=== PATIENT | female | born 1930 | race Caucasian/White ===

== ENCOUNTER 2019-08-28 13:23 | Inpatient (IN) ==
[2019-08-28] MEDS ORDERED: SODIUM CHLORIDE 0.9% 500 ML IV SCH (14:15)
[2019-08-28 14:40] LABS: Basophils # (auto) 0.01 K/uL (0-0.2); Basophils % (auto) 0.1 %; Hematocrit (blood only) 45.7 % (37-47); Hemoglobin 14.4 g/dL (12.0-16.0); Immature Granulocytes # (auto) 0.09 K/uL (0.00-0.02); Immature Granulocytes % (auto) 0.5 %; Lymphocytes # (auto) 0.84 K/uL (1.2-3.4); Lymphocytes % (auto) 4.6 %; Mean Corpuscular Hemoglobin 30.9 pg (25-34); Mean Corpuscular Hgb Conc 31.5 g/dL (32-36); Mean Corpuscular Volume 98.1 fL (80-100); Mean Platelet Volume 11.8 fL (7.4-10.4); Monocytes # (auto) 1.82 K/uL (0.11-0.59); Neutrophils # (auto) 15.37 K/uL (1.4-6.5); Neutrophils % (auto) 84.8 %; Platelet Count 174 K/uL (130-400); RDW Coefficient of Variation 17.1 % (11.5-14.5); RDW Standard Deviation 59.9 fL (36.4-46.3); Red Blood Count 4.66 M/uL (4.2-5.4); White Blood Count 18.13 K/uL (4.8-10.8)
[2019-08-28] MEDS ORDERED: DEXTROSE 50% 50 ML SYRINGE IV ONE ×2 (14:43→14:50)
[2019-08-28 14:53] LABS: iSTAT Blood Urea Nitrogen 37 mg/dl (7-18); iSTAT Carbon Dioxide 16 mEq/l (24-31); iSTAT Chloride 106 mEq/L (101-112); iSTAT Creatinine 1.5 mg/dl (0.6-1.3); iSTAT Glucose < 20 mg/dl (70-99); iSTAT Hematocrit 44 % (37-47); iSTAT Ionized Calcium 1.03 mmol/l (1.12-1.32); iSTAT Potassium 5.1 mEq/L (3.3-5.0); iSTAT Sodium 139 mEq/L (135-144)
[2019-08-28 15:01] LABS: Partial Thromboplastin Ratio 1.4; Partial Thromboplastin Time 36.6 Seconds (21.0-31.0); Prothrombin Time > 90.0 Seconds (9.0-12.0)
--- NOTE | 2019-08-28 15:11 | XRay Report ---
XR chest 1V portable CLINICAL HISTORY: hypoxia COMPARISON STUDY: 08/25/2019 FINDINGS: The heart remains enlarged. There is a left subclavian dual-chamber central venous pacemake r. There is stable elevation/eventration left hemidiaphragm. There is no failure. There is no focal p ulmonary consolidation.[Surgical clips are visualized within the base of the right neck/right medial lung apex. IMPRESSION: Cardiomegaly. No acute findings. ACT 112: Negative or not required by law. Electronically signed by: Subhash Swain M.D. 08/28/2019 3:10 PM
[2019-08-28 15:13] LABS: INR > 10.4 (0.9-1.1)
[2019-08-28 15:18] LABS: Alanine Aminotransferase 513 U/L (12-78); Albumin Globulin Ratio 1.3 (0.9-2); Albumin Level 3.6 gm/dl (3.4-5.0); Alkaline Phosphatase 149 U/L (45-117); Aspartate Aminotransferase 853 U/L (15-37); BUN Creatinine Ratio 20.9 (10-20); Blood Urea Nitrogen 37 mg/dl (7-18); Calcium 9.5 mg/dl (8.5-10.1); Carbon Dioxide 16 mmol/L (21-32); Chloride 105 mmol/L (98-107); Globulin 2.7 gm/dl (2.5-4.0); Glucose 4 mg/dl (70-99); Potassium 5.1 mmol/L (3.5-5.1); Sodium 141 mmol/L (136-145); Total Protein 6.3 gm/dl (6.4-8.2); Troponin I 0.075 ng/ml (0-0.045)
[2019-08-28] MEDS ORDERED: PIPERACILLIN/TAZOBACTAM 4.5 GM/120 ML BAG IV ONE ×2 (15:33→17:05)
[2019-08-28] MEDS ORDERED: PIPERACILL/TAZOBAC CONSULT ACTIVE PRN ×3 (15:33→18:18)
[2019-08-28] MEDS ORDERED: PHYTONADIONE 10 MG in SODIUM CHLORIDE 0.9% 50 ML IV ONE (15:33)
--- NOTE | 2019-08-28 15:52 | CT Scan Report ---
CT head/brain wo con CLINICAL HISTORY: Head trauma. Patient on Coumadin. COMPARISON STUDY: 08/25/2019 TECHNIQUE: Axial CT of the brain is performed from the vertex to the skull base. IV contrast was not administered for this examination. A dose lowering technique was utilized adhering to the principles of ALARA. CT DOSE: 537.48 mGy.cm FINDINGS: No intra or extra-axial mass lesions are visualized. There is no CT evidence of acute cortical infarc tion. There is no evidence of midline shift. There is no acute hemorrhage. No calvarial fractures ar e visualized. There are patchy white matter hypodensities likely on a small vessel basis. There are old right cereb ellar lacunar infarcts. There is no evidence of pathologic ventricular dilatation. There is no evidence of acute sinusitis IMPRESSION: No acute intracranial findings ACT 112: Negative or not required by law. Electronically signed by: Subhash Swain M.D. 08/28/2019 3:51 PM
--- NOTE | 2019-08-28 16:00 | CT Scan Report ---
CT SCAN OF THE ABDOMEN AND PELVIS WITHOUT CONTRAST CLINICAL HISTORY: rectal bleeding, abdominal pain COMPARISON STUDY: No previous studies for comparison. TECHNIQUE: CT scan of the abdomen and pelvis was performed from the lung bases to the proximal femurs . Images are reviewed in the axial, sagittal, and coronal planes. IV contrast was not administered fo r this examination. A dose lowering technique was utilized adhering to the principles of ALARA. CT DOSE: 358.84 mGy.cm FINDINGS: Lower chest: There is a small left pleural effusion and trace right pleural effusion. Liver: The unenhanced liver is normal in size, contour, and attenuation. There is no intrahepatic lauri iary ductal dilatation. Gallbladder: Surgically absent Spleen: Normal in size and attenuation. Pancreas: Unremarkable. Adrenal glands: Unremarkable. Kidneys: The unenhanced kidneys are normal in size without hydronephrosis. There is no contour deform ing renal mass lesion. No renal calculi are identified. Bowel: There are no transition zones to indicate bowel obstruction. There is suspected mild bowel wal l thickening involving the right colon, and rectum. There is no acute diverticulitis. There is no cary dence of acute appendicitis. Peritoneum: No free air is visualized. There is a small amount of perihepatic fluid. There is a small amount of fluid within a right inguinal hernia. Vasculature: The abdominal aorta is normal in course and caliber. Adenopathy: None. Pelvic viscera: The bladder, and pelvic viscera are unremarkable. Skeletal structures: There is an old left ischio pubic ring fracture. There is an old sacral fracture . There is generalized body wall edema consistent with anasarca. IMPRESSION: 1. Difficult study to interpret secondary to artifact from the patient's inability to extend her arms over her head. In addition the study is limited due to the lack of intravenous and oral contrast and the generalized anasarca present. 2. Small left pleural effusion and trace right pleural effusion 3. No evidence of bowel obstruction. No evidence of free air 4. No evidence of acute diverticulitis. No evidence of acute appendicitis. 5. Possible bowel wall thickening involving the rectum and right colon. Clinical correlation regards to a colitis is recommended 6. Minimal ascites 7. Generalized anasarca 8. No renal, ureteral, or bladder calculi identified ACT 112: Negative or not required by law. Electronically signed by: Subhash Swain M.D. 08/28/2019 3:58 PM
[2019-08-28] MEDS ORDERED: PANTOprazole 80 MG in DEXTROSE 5% 100 ML IV ONE (16:15)
[2019-08-28] MEDS: PANTOprazole 40 MG in DEXTROSE 5% 100 ML IV SCH ×2 (16:50→22:01)
[2019-08-28] MEDS ORDERED: SODIUM CHLORIDE 0.9% 1000ML 500 ML IV ONE (17:00)
--- NOTE | 2019-08-28 17:44 | History & Physical Report ---
Date of Service August 28, 2019 Assessment & Plan (1) Supratherapeutic INR: Patient chronically anticoagulated for atrial fibrillation with RVR Patient presents with GI bleed with scant amount of blood in underwear Unclear from shelter if patient has had ongoing hematochezia and melena INR is supratherapeutic greater than 10.4 Vitamin K 10 mg IV administered We will follow serial INR Hold Coumadin Follow serial CBC to monitor hemoglobin (2) Hypoglycemia: No history of diabetes mellitus or insulin use Lactic acid did return 11.1 We will have to assume that hypoglycemia secondary to sepsis Patient was treated with 2 amps of dextrose [id number] BSG is now 276 We will allow high BSG to drift down without any insulin until acidosis is corrected (3) Sepsis: Lactic acid is 11.[address] scan of the abdomen pelvis with question of colitis Zosyn has been started with 4.5 g administered in the emergency department We will also start daptomycin to cover MRSA Repeat lactic acid at 2000 with reflex repeat levels for lactic acid greater than 2 500 cc bolus of Normosol over 3 hours (175 cc/hr) We will follow serial labs Blood cultures x2 have been collected and are pending UA is ordered * Hold on Vaughan catheter secondary to supratherapeutic INR (4) Elevated troponin: Troponin 0 0.075 * This is probably a slight bump secondary to ischemic demand from sepsis Repeat troponin level at 2000 hrs. and again at 0400 EKG repeat in the morning Echocardiogram ordered for the morning (5) Liver dysfunction: Elevated AST ALT and alkaline phosphatase Repeat LFTs in the morning This may be secondary to sepsis Once patient is stable consider ultrasound of the liver No acute findings on CT abdomen pelvis No prior history of hepatitis or liver disease (6) Atrial fibrillation with tachycardic ventricular rate: Chronically anticoagulated with Coumadin * Supratherapeutic INR on admission Toprol-XL as an outpatient We will see how patient is doing the morning regarding oral meds We will place patient on telemetry We will order IV Lopressor 2.5 mg as needed Echocardiogram in the morning Repeat EKG in the morning (7) CVA (cerebral vascular accident): Secondary to atrial fibrillation with RVR several years ago No acute findings on CT head 08/25/2019 or on today's visit No indication for MRI or further follow-up at this time (8) Tachy-jackie syndrome: Status post pacemaker placement Continue to monitor on telemetry (9) Hypothyroidism: Secondary to partial thyroidectomy Synthroid 75 mcg daily May need to convert to IV if no improvement in patient status (10) DVT prophylaxis: INR supratherapeutic secondary to chronic Coumadin use Coumadin has been held and 10 mg of IV vitamin K has been administered Hold on LEATHA stockings and SCDs at this point Reevaluate in the morning Please refer to Dr. Dodge's addendum and corrections for further recommenda tions. History of Present Illness Chief Complaint: GI bleed Primary Care Provider: [facility] Attending: Dr. Dodge This is an 88-year-old female that currently resides at [facility] in assisted living for the last 3 weeks. She has a past medical history of atrial fibrillation with RVR, chronic anticoagulation, recent fall, tachybradycardia syndrome, status post placement of cardiac pacemaker, CVA, anxiety and depression, hypothyroidism, remote tobacco abuse history (quit smoking 50 years ago). The patient suffered a CVA several years ago secondary to atrial fibrillation with RVR. Since that time she has had increased dementia and recently was moved to assisted living at [facility]. She has been doing well until 4 days ago when she suffered a fall. She presented to the emergency department on 08/25/[address] head and cervical spine CT was negative. The patient has ecchymosis around the left eye with no tenderness to palpation. Today the family was notified that the patient had some blood with her stool and increased confusion. The patient was transported to the emergency department where a CT head was again negative and chest x-ray was negative for acute cardiopulmonary findings. CT abdomen and pelvis revealed artifact from movement and inability to extend arms overhead. Patient was found to have generalized anasarca on the study as well as a small left pleural effusion and a trace right pleural effusion. There was possible bowel wall thickening involving the rectum and right colon. There is minimal ascites. On arrival to the emergency department, patient was found to be hypoxic with an SaO2 in the 70s without good waveform. Patient was transiently placed on BiPAP. ABG was obtained which revealed pH of 7.36, PCO2 of 26.3, PaO2 of 371, HCO3 of 15, with an SaO2 of 100%. Patient was then placed on nasal cannula and nasal trumpet was kept in place. Oral examination of the posterior oropharynx revealed no evidence of stigmata of blood. Pulse oximetry 15 minutes after changing to nasal cannula revealed an SaO2 of 96% using the right third digit. Patient is seen at bedside with her daughter Cindy Davis and son-in-law Maciej. Patient is able to answer yes/no questions and follow simple commands. Patient shows no clinical evidence of acute stroke. She denies any pain to her head, thorax, or abdomen. Palpation around the left eye shows no guarding, flinching, or report of pain from the patient. She is unable to give me her history with where she lives. She is also unable to give me history regarding how she came to be at [facility]. Inasmuch as the patient was not able to provide review of systems, history was obtained by the daughter and son-in-law. Allergies Allergy/AdvReac Type Severity Reaction Status Date / Time adhesive Allergy Unknown RASH - Verified 08/28/19 14:17 ADHESIVE TAPE Home Medications Home Medications Medication Instructions Recorded Confirmed Type furosemide 20 mg PO QAM 08/25/19 08/28/19 History levothyroxine 75 mcg PO QAM 08/25/19 08/28/19 History metoprolol succinate 50 mg PO QAM 08/25/19 08/28/19 History potassium chloride 10 meq PO BID 08/25/19 08/28/19 History sertraline 50 mg PO QAM 08/25/19 08/28/19 History timolol maleate 1 drp OPB QA 08/25/19 08/28/19 History warfarin 9 mg PO DAILY 08/25/19 08/28/19 History warfarin 12 mg PO UD 08/25/19 08/28/19 History Past Med/Surg History Medical History Anxiety and depression (Chronic) Atrial fibrillation with tachycardic ventricular rate (Acute) CVA (cerebral vascular accident) Hypothyroidism (Chronic) Tachy-jackie syndrome TIA (transient ischemic attack) (Resolved) Surgical History History of partial thyroidectomy (Resolved) Hx of cataract surgery (Resolved) "bilat" Family History Other Family history non-contributory Social History (Updated 08/28/19 @ 17:37 by Miky Murillo PA-C) Preferred Language: [place] Islander Communication Ability Comment: unable to assess Beliefs That Will Affect Care: None marital status: / Current Living Situation: Personal Care Facility Current Living Situation Comment: Moved to [facility] assisted living 3 weeks ago 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al status: retired 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 No apparent acute distress. EYES: No icterus, gaze conjugate. Pupils equal round and reactive to light NOSE: No evidence of epistaxis. Nasal trumpet and right naris. Nasal cannula placed and secure. MOUTH: No lesions or candidiasis. No stigmata of blood in the posterior oropharynx. Bridge across the soft palate. Tongue is midline. Mucosa is extr tong dry. NECK: Supple. LUNGS: CTA B/L, no wheezes, rales or rhonchi. Patient takes deep inspiration of breath on command. HEART: Irregular, irregular with a rate in the 1-teens ABDOMEN: Soft, NT, ND, BS Present. No guarding EXTREMITIES: +2 LE edema, pedal pulses intact and equal bilaterally. There is mottling on the bilateral knees. There is venous stasis on the bilateral lower extremities. Feet are warm to touch and equal bilaterally. Radial pulses are intact and equal bilaterally. Hands are warm. NEURO: Awake and alert. Follows simple commands. Pupils equal round and reactive to light. Tongue is midline. Patient sticks tongue out to command. Patient squeezes fingers bilaterally and equally. Patient can wiggle toes bilaterally. Toes are non-equivocal. Results & Data Vital Signs (Past 12 Hours) Vital Signs Temp Pulse Pulse Resp BP Pulse Ox 08/28/19 16:00 114 H 22 140/95 96 08/28/19 15:21 94 08/28/19 14:59 114 H 18 113/88 85 L 08/28/19 14:40 115 H 26 H 08/28/19 14:22 76 L 08/28/19 13:24 35 C L 120 H 18 120/79 Laboratory Results 08/28/19 14:31 08/28/19 14:31 INR > 10.4 (0.9-1.1) H* 08/28/19 14:31 Laboratory Tests 08/28/19 08/28/19 14:31 16:58 Lactate 11.1 H* Troponin I 0.075 H* Laboratory Tests 08/28/19 14:31 Total Bilirubin 4.0 H AST 853 H ALT 513 H Alkaline Phosphatase 149 H Total Protein 6.3 L Albumin 3.6 Arterial blood gas 08/28/2019 at 16: 34 - pH 7.363 PCO2 26.3 [id number] HCO3 15 SaO2 100% Blood gases x2 are pending Diagnostic Findings CT SCAN OF THE ABDOMEN AND PELVIS WITHOUT CONTRAST CLINICAL HISTORY: rectal bleeding, abdominal pain COMPARISON STUDY: No previous studies for comparison. TECHNIQUE: CT scan of the abdomen and pelvis was performed from the lung bases to the proximal femurs. Images are reviewed in the axial, sagittal, and coronal planes. IV contrast was not administered for this examination. A dose lowering technique was utilized adhering to the principles of ALARA. CT DOSE: 358.84 mGy.cm FINDINGS: Lower chest: There is a small left pleural effusion and trace right pleural eff usion. Liver: The unenhanced liver is normal in size, contour, and attenuation. There is no intrahepatic biliary ductal dilatation. Gallbladder: Surgically absent Spleen: Normal in size and attenuation. Pancreas: Unremarkable. Adrenal glands: Unremarkable. Kidneys: The unenhanced kidneys are normal in size without hydronephrosis. There is no contour deforming renal mass lesion. No renal calculi are identified. Bowel: There are no transition zones to indicate bowel obstruction. There is winston spected mild bowel wall thickening involving the right colon, and rectum. There is no acute diverticulitis. There is no evidence of acute appendicitis. Peritoneum: No free air is visualized. There is a small amount of perihepatic fluid. There is a small amount of fluid within a right inguinal hernia. Vasculature: The abdominal aorta is normal in course and caliber. Adenopathy: None. Pelvic viscera: The bladder, and pelvic viscera are unremarkable. Skeletal structures: There is an old left ischio pubic ring fracture. There is an old sacral fracture. There is generalized body wall edema consistent with anasarca. IMPRESSION: 1. Difficult study to interpret secondary to artifact from the patient's inability to extend her arms over her head. In addition the study is limited due to the lack of intravenous and oral contrast and the generalized anasarca present. 2. Small left pleural effusion and trace right pleural effusion 3. No evidence of bowel obstruction. No evidence of free air 4. No evidence of acute diverticulitis. No evidence of acute appendicitis. 5. Possible bowel wall thickening involving the rectum and right colon. Clinical correlation regards to a colitis is recommended 6. Minimal ascites 7. Generalized anasarca 8. No renal, ureteral, or bladder calculi identified ACT 112: Negative or not required by law. Electronically signed by: Subhash Swain M.D. 08/28/2019 3:[address] head/brain wo con CLINICAL HISTORY: Head trauma. Patient on Coumadin. COMPARISON STUDY: 08/25/2019 TECHNIQUE: Axial CT of the brain is performed from the vertex to the skull base. IV contrast was not administered for this examination. A dose lowering technique was utilized adhering to the principles of ALARA. CT DOSE: 537.48 mGy.cm FINDINGS: No intra or extra-axial mass lesions are visualized. There is no CT evidence of acute cortical infarction. There is no evidence of midline shift. There is no acute hemorrhage. No calvarial fractures are visualized. There are patchy white matter hypodensities likely on a small vessel basis. There are old right cerebellar lacunar infarcts. There is no evidence of pathologic ventricular dilatation. There is no evidence of acute sinusitis IMPRESSION: No acute intracranial findings ACT 112: Negative or not required by law. Electronically signed by: Subhash Swain M.D. 08/28/2019 3:51 PM XR chest 1V portable CLINICAL HISTORY: hypoxia COMPARISON STUDY: 08/25/2019 FINDINGS: The heart remains enlarged. There is a left subclavian dual-chamber central venous pacemaker. There is stable elevation/eventration left hemidiaphragm. There is no failure. There is no focal pulmonary c onsolidation.[Surgical clips are visualized within the base of the right neck/right medial lung apex. IMPRESSION: Cardiomegaly. No acute findings. ACT 112: Negative or not required by law. Electronically signed by: Subhash Swain M.D. 08/28/2019 3:10 PM Code Status & VTE Plan Code Status DNR/DNI VTE Prophylaxis Plan VTE Prophylaxis will be ordered: No Supervising Physician Co-Signing Physician Notes HISTORY: Record reviewed. Patient interviewed and examined in ED. Care coordinated with Miky Murillo PA-C; please refer to his documentation for complete history. Briefly, 88-year-old female with history of atrial fibrillation managed with metoprolol and warfarin and other problems as noted. Recently admitted to [facility] personal care because of declining memory and inability to care for herself independently. Seen in ED on August 25 after a fall. No acute findings on CT of head and cervical spine. INR was 3.7 and patient was advised to hold next dose of warfarin. She returned to [facility]. Brought to ED today because of abdominal pain, rectal bleeding, decreased responsiveness. EXAM: General-appears to be acutely ill and minimally responsive HEENT- left periorbital ecchymoses Neck- supple Lungs- clear to auscultation; no respiratory distress Cardiovascular- irregular, tachycardic; no murmur or gallop appreciated; + JVD; trace pretibial edema Abdomen- quiet bowel sounds, slightly distended, soft, diffuse tenderness Extremities- contusions LLE Neuro- obtunded Skin- mottling of lower extremities DATA: Hemoglobin 14.4, white count 18,130, platelet count 174,000. Prothrombin time greater than 90 with INR greater than 10.4. PTT 36.6. Sodium 141, potassium 5.1, chloride 105, CO2 16, anion gap 20, BUN 37, creatinine 1.77, glucose 4. Total bilirubin 4.0, AST 853, ALT 513, alkaline phosphatase 143. Troponin 0.075. Serum lactate 11.1. Procalcitonin 0.3. Urinalysis showed 2+ protein, 1+ glucose, 1+ ketone, 3+ blood, negative nitrites, negative leukocyte esterase, 1-5 WBCs, greater than 30 RBCs, 1-5 hyaline casts, 10-20 epithelial cells, negative bacteria. Other lab studies as noted. Chest x-ray reviewed and demonstrated cardiomegaly, pacemaker, no infiltrates, effusions, CHF. CT head showed old right cerebellar lacunar infarcts, patchy white matter small vessel disease, no intracranial hemorrhage or other acute findings. CT of abdomen pelvis showed small left pleural effusion, trace right pleural effusion, possible bowel wall thickening involving the rectum and right colon, minimal ascites, no evidence of bowel obstruction or free air, no evidence of diverticulitis or appendicitis, no ureteral calculi, no intra-abdominal, retr operitoneal, or rectus sheath hematoma. EKG performed at 1343 reviewed and demonstrated atrial fibrillation at 120/ minute, baseline artifact, no acute ST or T wave abnormalities. ASSESSMENT AND PLAN: Possible sepsis. Leukocytosis, hypothermia, hyperlactemia, altered mental status suggest sepsi s. However, procalcitonin is normal. Most likely source intra-abdominal; combination of abdominal pain, hematochezia, and CT findings suggest colitis. Blood cultures obtained. Broad-spectrum antibiotic coverage with piperacillin/tazobactam and daptomycin. Received IV fluid resuscitation. Severe hypoglycemia. Profound hypoglycemia by [id number]-STAT testing as well as routine phlebotomy. Consider sepsis. Consider hepatic failure. Blood sugars improved with intravenous dextrose. Abdominal pain / lower GI bleed. CT of abdomen/pelvis suggested thickening of the colon consistent with colitis. No intra-abdominal / retroperitoneal / rectus sheath hematomas seen on CT. Cardioembolic event unlikely with supratherapeutic INR. Consider infectious colitis, but no apparent recent antibiotics. Check stools for C. difficile and routine enteric pathogens. Follow H&H. Decreased responsiveness, delirium. Metabolic encephalopathy/delirium, possibly secondary to sepsis, hypoglycemia, hepatic encephalopathy, or other etiologies. No acute findings on CT of head. Chronic AF with RVR. Chronic A. fib, now with rapid ventricular response. Continue metoprolol as hemodynamics permit. Hold warfarin because of elevated INR and GI bleeding. Elevated troponin. Troponin 0 0.075. No acute EKG changes. Elevated troponin could be secondary to sepsis, demand ischemia, or acute coronary injury. Elevated INR. INR greater than 10 on warfarin. Elevated INR could be secondary to decrease oral intake of vitamin K, sepsis, or hepatic failure. Received vitamin K in ED. Follow. Abnormal LFT's. LFT's elevated. Possible hepatic failure secondary to sepsis. Viral hepatitis very unlikely. Follow. Acute kidney injury. Serum lactate 1.77 compared to baseline of 1.02. Acute kidney injury, possibly related to sepsis and/or volume depletion. IV fluids, follow. Patient is critically ill and prognosis is concerning. Current status discussed with family. She has advanced directives that indicate DNR status. Family indicates that she would not want any extraordinary measures undertaken. Initial plan will be to treat with antibiotics and supportive measures pending culture results and clinical response. High priority is assuring that patient is comfortable; analgesics ordered. If condition worsens, transition to "comfort measures only" may be appropriate. Family would like to be called with any significant change of status. FAMILY CONTACT INFO: Daughter Cindy Davis [phone] Son-in-Law Maciej [phone] Please refer to USMAN Murillo's documentation for discussion of other issues.
--- NOTE | 2019-08-28 17:58 | Emergency Department Note ---
Entered by Millicent Jackson acting as a scribe for History of Present Illness General Chief complaint: Rectal Bleed Stated complaint: BLOOD IN STOOL Time Seen by Provider: 08/28/19 13:57 Source: patient and family History of Present Illness Onset (ago): day(s) (this afternoon) Location: buttocks (rectal) Pain Consistency: + other (episode) Maximum Pain Intensity: 0 Quality: + other (bleeding) Associated symptoms: + denies other symptoms (abdominal pain) and + other (pain all over, incoherent) The patient is an 88 year old female w/ PMHx anxiety, depression, a- fib, CVA, TIA, hypothyroidism, tachy-jackie syndrome, partial thyroidectomy, and bilateral cataract surgery who presents to the ED w/ CC of an episode of rectal bleeding starting this afternoon. The patients family states that the patient is from [facility] and last night they called 10 hours ago to tell her that she was having some abdominal pain, but was fine. They state that this morning she then had a normal morning in which she ate breakfast and went about her day. They state that this afternoon after eating lunch she had a painful bowel movement that was reports to have bright red blood throughout it. They state that [facility] reports that at this time the patient became incoherent and started complaining of pain all over. The family notes that the patient has memory issues at baseline that have been progressing over the last few weeks. They note that when they saw her 2 days ago she was fine and she was fine when they spoke to her yesterday. They note that the patient is a DNR. The patient complains of pain all over. The patient denies abdominal pain, a history of abdominal surgeries, and a history of diverticulitis. Home Medications Home Medications Medication Instructions Recorded Confirmed Type furosemide 20 mg PO QAM 08/25/19 08/28/19 History levothyroxine 75 mcg PO QAM 08/25/19 08/28/19 History metoprolol succinate 50 mg PO QAM 08/25/19 08/28/19 History potassium chloride 10 meq PO BID 08/25/19 08/28/19 History sertraline 50 mg PO QAM 08/25/19 08/28/19 History timolol maleate 1 drp OPB QA 08/25/19 08/28/19 History warfarin 9 mg PO DAILY 08/25/19 08/28/19 History warfarin 12 mg PO UD 08/25/19 08/28/19 History Allergies Allergy/AdvReac Type Severity Reaction Status Date / Time adhesive Allergy Unknown RASH - Verified 08/28/19 14:17 ADHESIVE TAPE Past Med/Surg History Medical History Anxiety and depression (Chronic) Atrial fibrillation with tachycardic ventricular rate (Acute) CVA (cerebral vascular accident) Hypothyroidism (Chronic) Tachy-jackie syndrome TIA (transient ischemic attack) (Resolved) Surgical History History of partial thyroidectomy (Resolved) Hx of cataract surgery (Resolved) "bilat" Family History Other Family history non-contributory Social History (Updated 08/28/19 @ 17:37 by Miky Murillo PA-C) Preferred Language: Armenian marital status: / Current Living Situation: Senior Living Current Living Situation Comment: Moved to [facility] assisted living 3 weeks ago 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al status: retired 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 and A total of 10 systems reviewed and were otherwise negative Physical Exam Vital Signs Vital Signs - 24 hr 08/28/19 13:24 08/28/19 13:31 08/28/19 14:22 Temperature 35 C L Temperature Source Rectal Pulse Rate Pulse Rate [Apical] 120 H Respiratory Rate 18 Respiratory Effort / Characteristics Respiratory Depth Respiratory Pattern Blood Pressure [Left Arm] 120/79 Blood Pressure Mean [Left Arm] 92 Pulse Oximetry 76 L Oxygen Delivery Method Room Air Fraction of Inspired Oxygen Sepsis Recent Fever Within 48 Hours No Sepsis Action Taken by Nursing No Action Required 08/28/19 14:40 08/28/19 14:59 08/28/19 15:21 Temperature Temperature Source Pulse Rate 115 H Pulse Rate [Apical] 114 H Respiratory Rate 26 H 18 Respiratory Effort / Characteristics Spontaneous Respiratory Depth Shallow Respiratory Pattern Regular Blood Pressure [Left Arm] 113/88 Blood Pressure Mean [Left Arm] 96 Pulse Oximetry 85 L 94 Oxygen Delivery Method BiPAP BiPAP Fraction of Inspired Oxygen 100 Sepsis Recent Fever Within 48 Hours Sepsis Action Taken by Nursing 08/28/19 16:00 Temperature Temperature Source Pulse Rate Pulse Rate [Apical] 114 H Respiratory Rate 22 Respiratory Effort / Characteristics Respiratory Depth Respiratory Pattern Blood Pressure [Left Arm] 140/95 Blood Pressure Mean [Left Arm] 110 Pulse Oximetry 96 Oxygen Delivery Method BiPAP Fraction of Inspired Oxygen Sepsis Recent Fever Within 48 Hours Sepsis Action Taken by Nursing GENERAL: Well nourished, moderate distress, bear hugger in place, non-toxic. EYE EXAM: Normal conjunctiva. PERRL, no anisocoria and EOM's grossly intact w/o pain. OROPHARYNX: Dry mucous membranes. Edentulous. NECK: Supple, no nuchal rigidity, no adenopathy, non-tender. No signs of meningismus. LUNGS: Clear to auscultation. Normal chest wall mechanics. HEART: NSR, no MRG. CHEST: Device in left chest. ABDOMEN: Abdomen soft, non-tender, normo-active bowel sounds, no masses, no rebound or guarding. BACK: No CVA TTP. SKIN: No rashes and no bruising. UPPER EXTREMITIES: Upper extremities are grossly normal. LOWER EXTREMITIES: 1-2+ bilateral lower extremity edema. No calf pain. NEURO EXAM: A&O x3, cranial nerves II-XII grossly intact, normal speech, moves all 4 extremities on command w/o issue. Course Course 1404: Past medical records reviewed. The patient was evaluated in room A12B. A complete history and physical exam was performed. 1406: Orders were placed and the patient was started on a cardaic monitor. 1440: The patient became acutely hypoxic into the 70s. She was responsive to verbal stimuli. I placed a nasal trumpet and switched her from an oxygen mask to Bi-PAP. The patient's family down not want her on a ventilator. They note that she is a DNI. 1442: I called x-ray at this time to shoot a STAT x-ray. 1443: Nursing staff informed me that her POC glucose was less than 20. I ordered D50 at this time. 1449: Patient received dextrose. I am ordering another amp of D50. 1500: I reevaluated the patient and her repeat BSG was 161. We are going to get an ABG. 1516: Lab called and informed me that the patient's glucose in the lab is 4. 1521: I reevaluated the patient and she is stable. 1605: I reevaluated the patient and updated her family on her test results. I discussed the treatment plan with them. They verbally agree and understand. 1616: I discussed the patient's case with ROBBIN Marroquin ospitalist. He will evaluate the patient for further management under Dr. Dodge' service. 1618: The patient's repeat BSG was 198. 1641: The patient's ABG shows that the patient has titrated her oxygen on the Bi-PAP. Administered Medications Pantoprazole Sodium 40 mg/ (Dextrose) 100 mls @ 20 mls/hr IV Q5H [facility] Stop: 09/27/19 16:29 Last Admin: 08/28/19 16:50 Dose: 20 mls/hr Documented by: [id number] Discontinued Medications Dextrose (Dextrose 50%) 50 ml IV NOW ONE Stop: 08/28/19 14:44 Last Admin: 08/28/19 14:51 Dose: 50 ml Documented by: [id number] Dextrose (Dextrose 50%) 50 ml IV NOW ONE Stop: 08/28/19 14:51 Last Admin: 08/28/19 14:54 Dose: 50 ml Documented by: [id number] Sodium Chloride (Nss) 500 mls @ 999 mls/hr IV .Q31M [facility] Stop: 08/28/19 14:45 Last Infusion: 08/28/19 14:58 Dose: 0 mls/hr Documented by: [id number] Admin: 08/28/19 14:17 Dose: 999 mls/hr Documented by: [id number] Piperacillin Sod/Tazobactam Sod (Zosyn) 4.5 gm in 120 mls @ 240 mls/hr IV NOW ONE Stop: 08/28/19 16:02 Last Infusion: 08/28/19 16:55 Dose: 0 mls/hr Documented by: [id number] Admin: 08/28/19 16:00 Dose: 240 mls/hr Documented by: [id number] Phytonadione 10 mg/ Sodium (Chloride) 51 mls @ 102 mls/hr IV ONE ONE Stop: 08/28/19 16:02 Last Infusion: 08/28/19 16:55 Dose: 0 mls/hr Documented by: [id number] Admin: 08/28/19 16:11 Dose: 102 mls/hr Documented by: [id number] Pantoprazole Sodium 80 mg/ (Dextrose) 120 mls @ 480 mls/hr IV NOW ONE Stop: 08/28/19 16:29 Last Infusion: 08/28/19 16:55 Dose: 0 mls/hr Documented by: [id number] Admin: 08/28/19 16:20 Dose: 480 mls/hr Documented by: [id number] Piperacillin Sod/Tazobactam Sod (Zosyn) 4.5 gm in 120 mls @ 240 mls/hr IV NOW ONE Stop: 08/28/19 17:34 Last Admin: 08/28/19 17:18 Dose: Not Given Documented by: [id number] Critical Care Time Critical Care Time: Yes Total Critical Care Time: 80 I have personally spent 80 minutes of critical care time in the direct management of this patient. This includes bedside care, interpretation of diagnostic studies, and testing, discussion with consultants, patient, and family members, and other required patient management activities. This 80 minutes is in excess of all separately billable procedures. Medical Decision Making Differential Diagnosis Differential diagnosis includes etiologies such as diverticulosis, AVM, coagulopathy, colitis, inflammatory bowel disease, malignancy, Ashlyn-Campbell tear, esophagitis, peptic ulcer disease, variceal bleed, gastritis, epistaxis, fissure, hemorrhoids, as well as others were entertained. Medical Records Attestation: I reviewed the patient's medical records. The patient was seen by Dr. Guo on 08/25 for a fall. She had a negative CT of her head and C-spine. She also had a negative chest x-ray. Her INR was 3.7 at that time and she had a hemoglobin of 14. She had a normal platelet count and normal kidney funciton. Home Medications Current Medication List: was personally reviewed by me Laboratory Data Attestation: I reviewed the patient's lab results. Result diagrams: 08/28/19 14:31 08/28/19 14:31 Lab Results 08/28/19 08/28/19 08/28/19 Range/Units 14:31 14:31 14:31 WBC 18.13 H (4.8-10.8) K/uL RBC 4.66 (4.2-5.4) M/uL Hgb 14.4 (12.0-16.0) g/dL POC Hgb (12.0-16.0) g/dl Hct 45.7 (37-47) % POC Hct (37-47) % MCV 98.1 (80-100) fL MCH 30.9 (25-34) pg MCHC 31.5 L (32-36) g/dL RDW Std Deviation 59.9 H (36.4-46.3) fL RDW Coeff of Sheila 17.1 H (11.5-14.5) % Plt Count 174 (130-400) K/uL MPV 11.8 H (7.4-10.4) fL Immature Gran % (Auto) 0.5 % Neut % (Auto) 84.8 % Lymph % (Auto) 4.6 % [place] % (Auto) 10.0 % Eos % (Auto) 0.0 % Baso % (Auto) 0.1 % Immature Gran # (Auto) 0.09 H (0.00-0.02) K/uL Neut # (Auto) 15.37 H (1.4-6.5) K/uL Lymph # (Auto) 0.84 L (1.2-3.4) K/uL [place] # (Auto) 1.82 H (0.11-0.59) K/uL Eos # (Auto) 0.00 (0-0.5) K/uL Baso # (Auto) 0.01 (0-0.2) K/uL PT > 90.0 H (9.0-12.0) Seconds INR > 10.4 H* (0.9-1.1) APTT 36.6 H (21.0-31.0) Seconds PTT Ratio 1.4 POC Sodium (135-144) mEq/L Sodium 141 (136-145) mmol/L POC Potassium (3.3-5.0) mEq/L Potassium 5.1 (3.5-5.1) mmol/L POC Chloride (101-112) mEq/L Chloride 105 (98-107) mmol/L Carbon Dioxide 16 L (21-32) mmol/L POC Total CO2 (24-31) mEq/l Anion Gap 20.0 H (3-11) POC Anion Gap (16-25) mmol/L POC BUN (7-18) mg/dl BUN 37 H (7-18) mg/dl Creatinine 1.77 H (0.6-1.2) mg/dl POC Creatinine (0.6-1.3) mg/dl Est Cr Clr Drug Dosing Not Reportable Est GFR ( Amer) 29.0 Est GFR (Non-Af Amer) 25.0 BUN/Creatinine Ratio 20.9 H (10-20) Glucose 4 L* (70-99) mg/dl POC Glucose (70-99) POC Glucose (other) (70-99) mg/dl Lactate (0.4-2.0) mmol/L Calcium 9.5 (8.5-10.1) mg/dl POC Ioniz Calcium Nas (1.12-1.32) mmol/l Total Bilirubin 4.0 H (0.2-1) mg/dl AST 853 H (15-37) U/L ALT 513 H (12-78) U/L Alkaline Phosphatase 149 H (45-117) U/L Troponin I 0.075 H* (0-0.045) ng/ml Total Protein 6.3 L (6.4-8.2) gm/dl Albumin 3.6 (3.4-5.0) gm/dl Globulin 2.7 (2.5-4.0) gm/dl Albumin/Globulin Ratio 1.3 (0.9-2) Procalcitonin (0-0.5) ng/ml Blood Type Antibody Screen 08/28/19 08/28/19 08/28/19 Range/Units 14:31 14:31 14:39 WBC (4.8-10.8) K/uL RBC (4.2-5.4) M/uL Hgb (12.0-16.0) g/dL POC Hgb 15.0 (12.0-16.0) g/dl Hct (37-47) % POC Hct 44 (37-47) % MCV (80-100) fL MCH (25-34) pg MCHC (32-36) g/dL RDW Std Deviation (36.4-46.3) fL RDW Coeff of Sheila (11.5-14.5) % Plt Count (130-400) K/uL MPV (7.4-10.4) fL Immature Gran % (Auto) % Neut % (Auto) % Lymph % (Auto) % [place] % (Auto) % Eos % (Auto) % Baso % (Auto) % Immature Gran # (Auto) (0.00-0.02) K/uL Neut # (Auto) (1.4-6.5) K/uL Lymph # (Auto) (1.2-3.4) K/uL [place] # (Auto) (0.11-0.59) K/uL Eos # (Auto) (0-0.5) K/uL Baso # (Auto) (0-0.2) K/uL PT (9.0-12.0) Seconds INR (0.9-1.1) APTT (21.0-31.0) Seconds PTT Ratio POC Sodium 139 (135-144) mEq/L Sodium (136-145) mmol/L POC Potassium 5.1 H (3.3-5.0) mEq/L Potassium (3.5-5.1) mmol/L POC Chloride 106 (101-112) mEq/L Chloride (98-107) mmol/L Carbon Dioxide (21-32) mmol/L POC Total CO2 16 L (24-31) mEq/l Anion Gap (3-11) POC Anion Gap 22.0 (16-25) mmol/L POC BUN 37 H (7-18) mg/dl BUN (7-18) mg/dl Creatinine (0.6-1.2) mg/dl POC Creatinine 1.5 H (0.6-1.3) mg/dl Est Cr Clr Drug Dosing Est GFR ( Amer) Est GFR (Non-Af Amer) BUN/Creatinine Ratio (10-20) Glucose (70-99) mg/dl POC Glucose (70-99) POC Glucose (other) < 20 L* (70-99) mg/dl Lactate (0.4-2.0) mmol/L Calcium (8.5-10.1) mg/dl POC Ioniz Calcium Nas 1.03 L (1.12-1.32) mmol/l Total Bilirubin (0.2-1) mg/dl AST (15-37) U/L ALT (12-78) U/L Alkaline Phosphatase (45-117) U/L Troponin I (0-0.045) ng/ml Total Protein (6.4-8.2) gm/dl Albumin (3.4-5.0) gm/dl Globulin (2.5-4.0) gm/dl Albumin/Globulin Ratio (0.9-2) Procalcitonin 0.30 (0-0.5) ng/ml Blood Type O Positive Antibody Screen NEGATIVE 08/28/19 08/28/19 08/28/19 Range/Units 15:02 16:16 16:49 WBC (4.8-10.8) K/uL RBC (4.2-5.4) M/uL Hgb (12.0-16.0) g/dL POC Hgb (12.0-16.0) g/dl Hct (37-47) % POC Hct (37-47) % MCV (80-100) fL MCH (25-34) pg MCHC (32-36) g/dL RDW Std Deviation (36.4-46.3) fL RDW Coeff of Sheila (11.5-14.5) % Plt Count (130-400) K/uL MPV (7.4-10.4) fL Immature Gran % (Auto) % Neut % (Auto) % Lymph % (Auto) % [place] % (Auto) % Eos % (Auto) % Baso % (Auto) % Immature Gran # (Auto) (0.00-0.02) K/uL Neut # (Auto) (1.4-6.5) K/uL Lymph # (Auto) (1.2-3.4) K/uL [place] # (Auto) (0.11-0.59) K/uL Eos # (Auto) (0-0.5) K/uL Baso # (Auto) (0-0.2) K/uL PT (9.0-12.0) Seconds INR (0.9-1.1) APTT (21.0-31.0) Seconds PTT Ratio POC Sodium (135-144) mEq/L Sodium (136-145) mmol/L POC Potassium (3.3-5.0) mEq/L Potassium (3.5-5.1) mmol/L POC Chloride (101-112) mEq/L Chloride (98-107) mmol/L Carbon Dioxide (21-32) mmol/L POC Total CO2 (24-31) mEq/l Anion Gap (3-11) POC Anion Gap (16-25) mmol/L POC BUN (7-18) mg/dl BUN (7-18) mg/dl Creatinine (0.6-1.2) mg/dl POC Creatinine (0.6-1.3) mg/dl Est Cr Clr Drug Dosing Est GFR ( Amer) Est GFR (Non-Af Amer) BUN/Creatinine Ratio (10-20) Glucose (70-99) mg/dl POC Glucose 161 H 198 H 256 H (70-99) POC Glucose (other) (70-99) mg/dl Lactate (0.4-2.0) mmol/L Calcium (8.5-10.1) mg/dl POC Ioniz Calcium Nas (1.12-1.32) mmol/l Total Bilirubin (0.2-1) mg/dl AST (15-37) U/L ALT (12-78) U/L Alkaline Phosphatase (45-117) U/L Troponin I (0-0.045) ng/ml Total Protein (6.4-8.2) gm/dl Albumin (3.4-5.0) gm/dl Globulin (2.5-4.0) gm/dl Albumin/Globulin Ratio (0.9-2) Procalcitonin (0-0.5) ng/ml Blood Type Antibody Screen 08/28/19 Range/Units 16:58 WBC (4.8-10.8) K/uL RBC (4.2-5.4) M/uL Hgb (12.0-16.0) g/dL POC Hgb (12.0-16.0) g/dl Hct (37-47) % POC Hct (37-47) % MCV (80-100) fL MCH (25-34) pg MCHC (32-36) g/dL RDW Std Deviation (36.4-46.3) fL RDW Coeff of Sheila (11.5-14.5) % Plt Count (130-400) K/uL MPV (7.4-10.4) fL Immature Gran % (Auto) % Neut % (Auto) % Lymph % (Auto) % [place] % (Auto) % Eos % (Auto) % Baso % (Auto) % Immature Gran # (Auto) (0.00-0.02) K/uL Neut # (Auto) (1.4-6.5) K/uL Lymph # (Auto) (1.2-3.4) K/uL [place] # (Auto) (0.11-0.59) K/uL Eos # (Auto) (0-0.5) K/uL Baso # (Auto) (0-0.2) K/uL PT (9.0-12.0) Seconds INR (0.9-1.1) APTT (21.0-31.0) Seconds PTT Ratio POC Sodium (135-144) mEq/L Sodium (136-145) mmol/L POC Potassium (3.3-5.0) mEq/L Potassium (3.5-5.1) mmol/L POC Chloride (101-112) mEq/L Chloride (98-107) mmol/L Carbon Dioxide (21-32) mmol/L POC Total CO2 (24-31) mEq/l Anion Gap (3-11) POC Anion Gap (16-25) mmol/L POC BUN (7-18) mg/dl BUN (7-18) mg/dl Creatinine (0.6-1.2) mg/dl POC Creatinine (0.6-1.3) mg/dl Est Cr Clr Drug Dosing Est GFR ( Amer) Est GFR (Non-Af Amer) BUN/Creatinine Ratio (10-20) Glucose (70-99) mg/dl POC Glucose (70-99) POC Glucose (other) (70-99) mg/dl Lactate 11.1 H* (0.4-2.0) mmol/L Calcium (8.5-10.1) mg/dl POC Ioniz Calcium Nas (1.12-1.32) mmol/l Total Bilirubin (0.2-1) mg/dl AST (15-37) U/L ALT (12-78) U/L Alkaline Phosphatase (45-117) U/L Troponin I (0-0.045) ng/ml Total Protein (6.4-8.2) gm/dl Albumin (3.4-5.0) gm/dl Globulin (2.5-4.0) gm/dl Albumin/Globulin Ratio (0.9-2) Procalcitonin (0-0.5) ng/ml Blood Type Antibody Screen Imaging Data Radiologist's Impression: Radiology results as stated below per my review and the radiologist's interpretation: XR chest 1V portable CLINICAL HISTORY: hypoxia COMPARISON STUDY: 08/25/2019 FINDINGS: The heart remains enlarged. There is a left subclavian dual-chamber central venous pacemaker. There is stable elevation/eventration left hemidiaphragm. There is no failure. There is no focal pulmonary consolidation.[Surgical clips are visualized within the base of the right n pan/right medial lung apex. IMPRESSION: Cardiomegaly. No acute findings. ACT 112: Negative or not required by law. Electronically signed by: Subhash Swain M.D. 08/28/2019 3:[address] head/brain wo con CLINICAL HISTORY: Head trauma. Patient on Coumadin. COMPARISON STUDY: 08/25/2019 TECHNIQUE: Axial CT of the brain is performed from the vertex to the skull base. IV contrast was not administered for this examination. A dose lowering technique was utilized adhering to the principles of ALARA. CT DOSE: 537.48 mGy.cm FINDINGS: No intra or extra-axial mass lesions are visualized. There is no CT evidence of acute cortical infarction. There is no evidence of midline shift. There is no acute hemorrhage. No calvarial fractures are visualized. There are patchy white matter hypodensities likely on a small vessel basis. There are old right cerebellar lacunar infarcts. There is no evidence of pathologic ventricular dilatation. There is no evidence of acute sinusitis IMPRESSION: No acute intracranial findings ACT 112: Negative or not required by law. Electronically signed by: Subhash Swain M.D. 08/28/2019 3:[address] SCAN OF THE ABDOMEN AND PELVIS WITHOUT CONTRAST CLINICAL HISTORY: rectal bleeding, abdominal pain COMPARISON STUDY: No previous studies for comparison. TECHNIQUE: CT scan of the abdomen and pelvis was performed from the lung bases to the proximal femurs. Images are reviewed in the axial, sagittal, and coronal planes. IV contrast was not administered for this examination. A dose lowering technique was utilized adhering to the principles of ALARA. CT DOSE: 358.84 mGy.cm FINDINGS: Lower chest: There is a small left pleural effusion and trace right pleural effusion. Liver: The unenhanced liver is normal in size, contour, and attenuation. There is no intrahepatic biliary ductal dilatation. Gallbladder: Surgically absent Spleen: Normal in size and attenuation. Pancreas: Unremarkable. Adrenal glands: Unremarkable. Kidneys: The unenhanced kidneys are normal in size without hydronephrosis. There is no contour deforming renal mass lesion. No renal calculi are identified. Bowel: There are no transition zones to indicate bowel obstruction. There is suspected mild bowel wall thickening involving the right colon, and rectum. There is no acute diverticulitis. There is no evidence of acute appendicitis. Peritoneum: No free air is visualized. There is a small amount of perihepatic fluid. There is a small amount of fluid within a right inguinal hernia. Vasculature: The abdominal aorta is normal in course and caliber. Adenopathy: None. Pelvic viscera: The bladder, and pelvic viscera are unremarkable. Skeletal structures: There is an old left ischio pubic ring fracture. There is an old sacral fracture. There is generalized body wall edema consistent with anasarca. IMPRESSION: 1. Difficult study to interpret secondary to artifact from the patient's inability to extend her arms over her head. In addition the study is limited due to the lack of intravenous and oral contrast and the generalized anasarca present. 2. Small left pleural effusion and trace right pleural effusion 3. No evidence of bowel obstruction. No evidence of free air 4. No evidence of acute diverticulitis. No evidence of acute appendicitis. 5. Possible bowel wall thickening involving the rectum and right colon. Clinical correlation regards to a colitis is recommended 6. Minimal ascites 7. Generalized anasarca 8. No renal, ureteral, or bladder calculi identified ACT 112: Negative or not required by law. Electronically signed by: Subhash Swain M.D. 08/28/2019 3:58 PM ECG Data Attestation: I personally reviewed and interpreted this ECG as follows: Indication: + altered mental status Rate (beats per minute): 124 Rhythm: + atrial fibrillation (with RVR) ECG Intervals/blocks: + Normal QRS ECG [place]: + Normal Blood Pressure Blood Pressure Findings: Elevated blood pressure Blood Pressure Disposition: further management by hospitalist RAMILA Narrative The patient is an 88 year old female w/ PMHx anxiety, depression, a- fib, CVA, TIA, hypothyroidism, tachy-jackie syndrome, partial thyroidectomy, and bilateral cataract surgery who presents to the ED w/ CC of an episode of rectal bleeding starting this afternoon. Patient was seen and evaluated the bedside. The patient did present with concer n for some abdominal pain and rectal bleeding. The patient did have a recent visit for which she had fairly unremarkable blood work and a negative CT after fall. The patient does take Coumadin. The patient is intermittently responsive but the patient will focus answer questions and follow commands and move all 4 extremities. The patient is able to recognize the daughter in the room who is the patient's power of finished cloth checker. The patient does have mild abdominal pain but does not localize anywhere particularly. The patient did a bladder completed was noted to be hypothermic [id number] BMP was ordered which showed that the patient did have a very low blood glucose and the patient was given 2 A of D50 immediately. Was also concerned about intermittent working ability for detection of an appropriate pulse oximetry. Patient was placed on BiPAP and I discussed additional interventions with the patient's family. She did tolerate a nasal trumpet. Family did not want the patient to be placed on a ventilator and did not want the patient to be intubated. I did order an ABG and a stat chest x-ray. Chest x-ray appears clear by her my read and further was confirmed by radiology to be unremarkable. The patient CT of the abdomen pelvis was ordered along with the CT of the head. CT head is unremarkable. CT abdomen pelvis is limited given the lack of IV or oral contrast but does show some anasarca. Patient does have pleural effusions and possible colitis. No other obvious findings. Patient does have liver dysfunction but was noted to have a surgically absent gallbladder. I did discuss with the patient's family they were unaware of a cholecystectomy but I did look at the patient's abdomen more thoroughly and the patient does have a horizontal incisional scar in the right upper quadrant which may be consistent with a prior cholecystectomy. Repeat blood glucose did show that the patient's blood glucose was 160. Patient does not use any alcohol and is not been using excessive Tylenol per the family. Patient's INR was elevated greater than 10 and vitamin K was ordered. The patient was given additional IV fluids. Lactate was pending blood cultures were drawn and the patient had been given Zosyn. Patient was tolerating the BiPAP well and the ABG did show that the patient was oxygenating without problem. Patient was subsequently admitted to the medicine service. I did receive the result the patient's lactate was greater than 11. I did consider things like mesenteric ischemia or possible clots which are possibilities but be very difficult to detect without a contrasted CT scan. Furthermore, the patient's INR was very supratherapeutic. There were no signs of intrahepatic ductal dilatation per the CT scan. No evidence of any stones in the duct. Patient does have AK I did receive some additional IV fluids. I did attempt to call the inpatient team to make them aware of the elevated lactate. The patient does have a borderline elevated troponin but believe this is more likely demand given the patient's concomitant medical issues currently ongoing. Patient was also started on a PPI bolus and drip for the rectal bleeding. I did discuss the robert olvera's elevated lactate with the admitting hospitalist who is in agreement and the considerations of infection versus mesenteric ischemia although mesenteric ischemia may be less likely given the patient's supratherapeutic INR. Impression & Plan Respiratory failure, Liver dysfunction, Supratherapeutic INR, Dehydration, MARKELL (acute kidney injury), Elevated troponin, Hypoglycemia Discharge Plan Visit Data Chief Complaint: Rectal Bleed Stated Complaint: BLOOD IN STOOL ED Provider: Raffy Garcia Discharge Problem: Respiratory failure, Liver dysfunction, Supratherapeutic INR, Dehydration, MARKELL (acute kidney injury), Elevated troponin, Hypoglycemia Patient Disposition: Being Evaluated by Hospitalist Discharge Instructions Interventions: ED Discharge Assessment Last Done: 08/28/19 17:58 Discharge Problem: Respiratory failure Qualifiers: Chronicity: unspecified Respiratory failure complication: hypoxia Qualified Code(s): J96.91 - Respiratory failure, unspecified with hypoxia The scribe's documentation has been prepared under my direction and personally reviewed by me in its entirety. I confirm that the note above accurately reflects all work, treatment, procedures, and medical decision making performed by me.
[2019-08-28] MEDS ORDERED: GLUCAGON FOR INJ 1 MG VIAL SQ PRN (18:18)
[2019-08-28] MEDS ORDERED: POLYETHYLENE (MIRALAX) 17 GM PACK PO PRN (18:18)
[2019-08-28] MEDS ORDERED: GLUCOSE 10 TABS/TUBE PO PRN (18:18)
[2019-08-28] MEDS ORDERED: GLUCOSE 40% GEL 15 GM TUBE PO PRN (18:18)
[2019-08-28] MEDS ORDERED: DEXTROSE 50% 50 ML SYRINGE IV PRN (18:18)
[2019-08-28] MEDS ORDERED: ONDANSETRON INJ 2 MG/ML 2 ML VIAL IV PRN (18:18)
[2019-08-28] MEDS ORDERED: CARBOHYDRATES FOR HYPOGLYCEMIA PO PRN (18:18)
[2019-08-28] MEDS ORDERED: DAPTOmycin 500 MG VIAL IV SCH (18:18)
[2019-08-28] MEDS ORDERED: NORMOSOL-R 500 ML IV ONE (18:45)
[2019-08-28 18:56] LABS: Appearance Urine Clear (Clear); Bacteria Urine Automated Negative (Negative); Bilirubin Urine Negative (Negative); Blood Urine 3+ (Negative); Color Urine Dark Yellow; Glucose Urine UA 1+ (Negative); Ketones Urine 1+ (Negative); Leukocyte Esterase Urine Negative (Negative); Nitrite Urine Negative (Negative); Protein Urine 2+ (Negative); RBC Urine Automated >30 /hpf (0-4); Specific Gravity Urine 1.015 (1.000-1.030); Urobilinogen Urine Negative (Negative); pH Urine 5.5 (4.5-7.5)
[2019-08-28] MEDS ORDERED: DAPTOmycin 275 MG in SYRINGE 0 ML IV SCH (19:00)
[2019-08-28] MEDS ORDERED: HYDROmorphone INJ 0.5 MG/0.5 ML SYR IV PRN (20:32)
[2019-08-28] MEDS ORDERED: INSULIN ASPART 100 UNITS/ML 3 ML PEN SC SCH (21:00)
[2019-08-28 21:12] LABS: Prothrombin Time 82.4 Seconds (9.0-12.0)
[2019-08-28 21:14] LABS: INR 9.5 (0.9-1.1)
[2019-08-28 21:28] LABS: BUN Creatinine Ratio 27.1 (10-20); Calcium 8.2 mg/dl (8.5-10.1); Creatinine Clr Calc Pharmacy 19.3 ml/min; Est GFR (African American) 32.3; Est GFR (Non-African American) 27.9; Potassium 3.8 mmol/L (3.5-5.1)
[2019-08-28] MEDS ORDERED: SODIUM CHLORIDE 0.9% 1000ML 1,000 ML IV SCH (21:30)
[2019-08-28] MEDS: D5W NORMOSOL-R 1,000 ML IV SCH (21:53)
--- NOTE | 2019-08-28 22:19 | Electrocardiogram Report ---
Test Reason : Blood Pressure : / mmHG Vent. Rate : 124 BPM Atrial Rate : 138 BPM P-R Int : 000 ms QRS Dur : 084 ms QT Int : 350 ms P-R-T Axes : 000 074 059 degrees QTc Int : 502 ms Poor data quality, interpretation may be adversely affected Atrial fibrillation with rapid ventricular response with premature ventricular or aberrantly conducte d complexes Low voltage QRS Abnormal ECG When compared with ECG of 25-AUG-2019 09:38, T wave inversion no longer evident in Anterolateral leads Confirmed by Betito Preston ([id number]) on 08/28/2019 10:18:54 PM Referred By: REFERRED SELF Confirmed By:Betito Preston
[2019-08-29] MEDS: METOPROLOL TARTRATE 1 MG/ML VIAL IV SCH ×3 (00:21→11:37)
[2019-08-29] MEDS: PANTOprazole 40 MG in DEXTROSE 5% 100 ML IV SCH ×3 (02:20→11:28)
[2019-08-29 06:15] LABS: Albumin Level 2.4 gm/dl (3.4-5.0); BUN Creatinine Ratio 27.5 (10-20); Bilirubin Direct 1.2 mg/dl (0-0.2); Calcium 7.9 mg/dl (8.5-10.1); Creatinine Clr Calc Pharmacy 19.8 ml/min; Est GFR (African American) 33.3; Est GFR (Non-African American) 28.7; Potassium 3.7 mmol/L (3.5-5.1)
[2019-08-29 06:25] LABS: Basophils # (auto) 0.01 K/uL (0-0.2); Basophils % (auto) 0.1 %; Hematocrit (blood only) 42.6 % (37-47); Hemoglobin 13.5 g/dL (12.0-16.0); Immature Granulocytes # (auto) 0.06 K/uL (0.00-0.02); Immature Granulocytes % (auto) 0.6 %; Lymphocytes # (auto) 0.59 K/uL (1.2-3.4); Lymphocytes % (auto) 6.2 %; Mean Corpuscular Hemoglobin 30.5 pg (25-34); Mean Corpuscular Hgb Conc 31.7 g/dL (32-36); Mean Corpuscular Volume 96.2 fL (80-100); Mean Platelet Volume 11.7 fL (7.4-10.4); Monocytes # (auto) 0.76 K/uL (0.11-0.59); Monocytes % (auto) 7.9 %; Neutrophils # (auto) 8.15 K/uL (1.4-6.5); Neutrophils % (auto) 85.2 %; Nucleated RBC # (auto) 0.18 K/uL (0-0); Nucleated RBC % (auto) 1.9 %; Platelet Count 133 K/uL (130-400); RDW Coefficient of Variation 16.9 % (11.5-14.5); RDW Standard Deviation 57.6 fL (36.4-46.3); Red Blood Count 4.43 M/uL (4.2-5.4); White Blood Count 9.57 K/uL (4.8-10.8)
[2019-08-29] MEDS ORDERED: LEVOTHYROXINE SODIUM 75 MCG TABLET PO SCH (06:30)
[2019-08-29 06:36] LABS: Estimated Average Glucose 111 mg/dl; Hemoglobin A1C 5.5 % (4.5-5.6)
[2019-08-29 06:41] LABS: Partial Thromboplastin Ratio 1.5; Partial Thromboplastin Time 41.6 Seconds (21.0-31.0); Prothrombin Time 42.9 Seconds (9.0-12.0)
[2019-08-29 06:42] LABS: INR 4.7 (0.9-1.1)
[2019-08-29 06:43] LABS: Bilirubin,Total 2.3 mg/dl (0.2-1); Total Protein 4.5 gm/dl (6.4-8.2); Troponin I 0.149 ng/ml (0-0.045)
[2019-08-29] MEDS: D5W NORMOSOL-R 1,000 ML IV SCH (08:46)
[2019-08-29] MEDS: TIMOLOL MALEATE 0.25% OP SOLN 5 ML BTL OPB SCH (08:47)
[2019-08-29] MEDS ORDERED: METOPROLOL SUCC 50MG EXT REL TAB PO SCH (09:00)
[2019-08-29] MEDS ORDERED: SERTRALINE HCL 50 MG TABLET PO SCH (09:00)
--- NOTE | 2019-08-29 09:57 | Electrocardiogram Report ---
Test Reason : Blood Pressure : / mmHG Vent. Rate : 120 BPM Atrial Rate : 000 BPM P-R Int : 000 ms QRS Dur : 084 ms QT Int : 362 ms P-R-T Axes : 000 076 085 degrees QTc Int : 511 ms Atrial fibrillation with rapid ventricular response Abnormal ECG When compared with ECG of 28-AUG-2019 13:43, No significant change was found Confirmed by Jd Jean-Baptiste ([id number]) on 08/29/2019 9:56:52 AM Referred By: REFERRED SELF Confirmed By:Jd Jean-Baptiste
[2019-08-29 10:34] LABS: iSTAT Arterial Blood Gas HCO3 15 meg/L (19-24); iSTAT Arterial Blood Gas pCO2 26 mmHg (35-46); iSTAT Arterial Blood Gas pH 7.36 (7.35-7.45); iSTAT Arterial Blood Gas pO2 371 mmHg (80-95); iSTAT Carbon Dioxide 16 mEq/l (24-31)
[2019-08-29 10:35] LABS: iSTAT Sample Type Arterial
[2019-08-29] MEDS: PIPERACILLIN/TAZOBACTAM 4.5 GM in DEXTROSE 5% 100 ML IV SCH ×2 (11:36)
--- NOTE | 2019-08-29 12:30 | Hospitalist Progress Note ---
Date of Service August 29, 2019 Assessment & Plan (1) Sepsis: Patient admitted with obtundation, Criteria for severe sepsis, leukocytosis, tachycardia elevated lactic acid more than 11, tachypneic, acute renal failure Source infection was not found, Possible bowel ischemia remains high in differential diagnosis, which may cause liver failure, hypercoagulable state, GI bleedT abdomen pelvis shows mild bowel wall thickening on right colon, and rectum Patient was treated with IV fluids broad-spectrum IV antibiotics Family reports patient complaint of severe abdomen pain throughout the day, overnight blood in stool Clinical status has not improved overnight, liver function worsened AST ALT more than 1000, INR remains elevated to 4 given IV vitamin K yesterday Family wants to transition care to comfort only [facility] Plan of care transitioned to comfort only Patient is transition to medical floor, order for IV Ativan, IV morphine as needed, as patient was showing sign of discomfort with position change Given concern for acute abdomen we will avoid p.o. meds, may contribute to more abdominal pain CODE STATUS: DNR/DNI Patient's daughter Cindy Davis : /and son-in-law Maciej cell phoner #[phone] would like to have update regarding any change of status of the patient Supervising Physician Co-Signing Physician Notes HISTORY: Record reviewed. Patient interviewed and examined in ED. Care coordinated with Miky Murillo PA-C; please refer to his documentation for complete history. Briefly, 88-year-old female with history of atrial fibrillation managed with metoprolol and warfarin and other problems as noted. Recently admitted to [facility] personal care because of declining memory and inability to care for herself independently. Seen in ED on August 25 after a fall. No acute findings on CT of head and cervical spine. INR was 3.7 and patient was advised to hold next dose of warfarin. She returned to [facility]. Brought to ED today because of abdominal pain, rectal bleeding, decreased responsiveness. EXAM: General-appears to be acutely ill and minimally responsive HEENT- left periorbital ecchymoses Neck- supple Lungs- clear to auscultation; no respiratory distress Cardiovascular- irregular, tachycardic; no murmur or gallop appreciated; + JVD; trace pretibial edema Abdomen- quiet bowel sounds, slightly distended, soft, diffuse tenderness Extremities- contusions LLE Neuro- obtunded Skin- mottling of lower extremities DATA: Hemoglobin 14.4, white count 18,130, platelet count 174,000. Prothrombin time greater than 90 with INR greater than 10.4. PTT 36.6. Sodium 141, potassium 5.1, chloride 105, CO2 16, anion gap 20, BUN 37, creatinine 1.77, glucose 4. Total bilirubin 4.0, AST 853, ALT 513, alkaline phosphatase 143. Troponin 0.075. Serum lactate 11.1. Procalcitonin 0.3. Urinalysis showed 2+ protein, 1+ glucose, 1+ ketone, 3+ blood, negative nitrites, negative leukocyte esterase, 1-5 WBCs, greater than 30 RBCs, 1-5 hyali ne casts, 10-20 epithelial cells, negative bacteria. Other lab studies as noted. Chest x-ray reviewed and demonstrated cardiomegaly, pacemaker, no infiltrates, effusions, CHF. CT head showed old right cerebellar lacunar infarcts, patchy white matter small vessel disease, no intracranial hemorrhage or other acute findings. CT of abdomen pelvis showed small left pleural effusion, trace right pleural effusion, possible bowel wall thickening involving the rectum and right colon, minimal ascites, no evidence of bowel obstruction or free air, no evidence of diverticulitis or appendicitis, no ureteral calculi, no intra-abdominal, retroperitoneal, or rectus sheath hematoma. EKG performed at 1343 reviewed and demonstrated atrial fibrillation at 120/ minute, baseline artifact, no acute ST or T wave abnormalities. ASSESSMENT AND PLAN: Possible sepsis. Leukocytosis, hypothermia, hyperlactemia, altered mental status suggest sepsis. However, procalcitonin is normal. Most likely source intra-abdominal; combination of abdominal pain, hematochezia, and CT findings suggest colitis. Blood cultures obtained. Broad-spectrum antibiotic coverage with piperacillin/tazobactam and daptomycin. Received IV fluid resuscitation. Severe hypoglycemia. Profound hypoglycemia by [id number]-qc-[id number]/i-STAT testing as well as routine phlebotomy. Consider sepsis. Consider hepatic failure. Blood sugars improved with intravenous dextrose. Abdominal pain / lower GI bleed. CT of abdomen/pelvis suggested thickening of the colon consistent with colitis. No intra-abdominal / retroperitoneal / rectus sheath hematomas seen on CT. Cardioembolic event unlikely with supratherapeutic INR. Consider infectious colitis, but no apparent recent antibiotics. Check stools for C. difficile and routine enteric pathogens. Follow H&H. Decreased responsiveness, delirium. Metabolic encephalopathy/delirium, possibly secondary to sepsis, hypoglycemia, hepatic encephalopathy, or other etiologies. No acute findings on CT of head. Chronic AF with RVR. Chronic A. fib, now with rapid ventricular response. Continue metoprolol as hemodynamics permit. Hold warfarin because of elevated INR and GI bleeding. Elevated troponin. Troponin 0 0.075. No acute EKG changes. Elevated troponin could be secondary to sepsis, demand ischemia, or acute coronary injury. Elevated INR. INR greater than 10 on warfarin. Elevated INR could be secondary to decrease oral intake of vitamin K, sepsis, or hepatic failure. Received vitamin K in ED. Follow. Abnormal LFT's. LFT's elevated. Possible hepatic failure secondary to sepsis. Viral hepatitis very unlikely. Follow. Acute kidney injury. Serum lactate 1.77 compared to baseline of 1.02. Acute kidney injury, possibly related to sepsis and/or volume depletion. IV fluids, follow. Patient is critically ill and prognosis is concerning. Current status discussed with family. She has advanced directives that indicate DNR status. Family indicates that she would not want any extraordinary measures undertaken. Initial plan will be to treat with antibiotics and supportive measures pending culture results and clinical response. High priority is assuring that patient is comfortable; analgesics ordered. If condition worsens, transition to "comfort measures only" may be appropriate. Family would like to be called with any significant change of status. FAMILY CONTACT INFO: Daughter Cindy Davis [phone] Son-in-Law Maciej [phone] Please refer to USMAN Murillo's documentation for discussion of other issues. Subjective Patient remains unresponsive, obtunded, breathing heavily with mouth open, No sign of distress noted During abdomen exam, patient opens eyes briefly No grimaces noted Patient's daughter Cindy/and son-in-law present at bedside Wants patient to be transition to comfort care only, does not want any heroic measures, Per daughter," patient never wanted any surgery, or invasive procedure herself, and mentioned multiple times to the family members" Given there is no improvement after IV fluids and antibiotic, family feels comfortable to transition care to palliative/symptom control Patient is ordered to transfer out of medical surgical floor, IV fluid and the antibiotic and lab draw discontinued family aware and in agreement .For IV morphine as needed, and IV Ativan PRN: Nursing reports patient's gets very uncomfortable and agitated with minimum change of position/movement Ordered for Vaughan to be inserted for comfort care Review of Systems Review of Systems: Unobtainable due to mental health condition (Remains obtunded,) Physical Exam Constitutional: + thin and + altered mental status (Unresponsive, obtunded) Eyes: Large periorbital ecchymosis noted on the left, patient sustained a fall few days ago ENMT: Very dry oral mucosa, breathing via mouth Respiratory: Auscultation: + diminished lung sounds; no rales, no rhonchi and no wheezes Cardiovascular: RRR, no murmur, no edema Gastrointestinal (Abdomen): Percussion/Palpation: abdomen soft; no guarding and abdomen not rigid Occasional bowel sounds/hyper pitched noted, minimally distended, Neurologic: Remains obtunded, minimally responsive Results & Data Vital Signs (Past 12 Hours) Vital Signs Temp Pulse Pulse Resp BP BP Pulse Ox 08/29/19 11:37 122 H 114/78 08/29/19 11:35 36.5 C 122 H 24 114/78 90 08/29/19 08:00 135 H 08/29/19 07:17 36.3 C L 127 H 25 H 100/67 91 08/29/19 06:23 119 H 113/73 08/29/19 04:00 36.5 C 108 H 24 102/53 L 90 (1) Sepsis Sepsis type: sepsis due to unspecified organism Sepsis acute organ dysfunction status: with acute organ dysfunction Severe sepsis acute organ dysfunction type: acute renal failure Acute renal failure type: unspecified Severe sepsis shock status: unspecified Qualified Code(s): A41.9 - Sepsis, unspecified organism; R65.20 - Severe sepsis without septic shock; N17.9 - Acute kidney failure, unspecified
[2019-08-29] MEDS ORDERED: ATROPINE SULFATE 1% OP SOLN 2 ML BTL SL PRN (13:34)
[2019-08-29] MEDS ORDERED: LORazepam 2 MG/ML VIAL IV PRN (13:34)
[2019-08-29] MEDS ORDERED: ONDANSETRON INJ 2 MG/ML 2 ML VIAL IV PRN (13:34)
[2019-08-29] MEDS: MoRPHine SULFATE 2 MG/ML CARP IV PRN ×2 (15:54→21:33)
[2019-08-30] MEDS: MoRPHine SULFATE 2 MG/ML CARP IV PRN (06:25)
--- NOTE | 2019-08-30 08:36 | Palliative Care Consultation ---
Date of Consultation August 30, 2019 Assessment & Plan (1) Palliative care encounter: This is an 88-year-old female that is a permanent resident at [facility] for the past 3 weeks. She started to become hypoxic and had an SpO2 in the 70's. They transported her to [facility] and placed her on BiPAP. The patient has an extensive PMH that includes atrial fibrillation with RVR, chronic anticoagulation, recent fall, tachybradycardia syndrome, status post placement of cardiac pacemaker, CVA, anxiety and depression, hypothyroidism, remote tobacco abuse history (quit smoking 50 years ago).The patients daughter and son in law were both at the bedside. She initially was able to answer simple yes/no questions and follow simple commands. Lengthy conversation was held with the patients daughter and the goal was to focus fully on comfort. She was placed on nasal canula and comfort medications were ordered. Palliative Care was consulted to discuss goals of care. -I met with the patient in her room. No family was at the bedside. -The patient did open her eyes, but her breathing appeared labored, was unable to answer any questions or focus her eye gaze to me. She was starting to have periods of apnea, 3-5 seconds when I was in the room -I increased the Morphine frequency to Q1 hour and discussed appropriate administration of morphine with the nursing staff, regarding breathing changes, furrowed brow, etc. -I phoned Cheri and advised of her decline and continue focus on comfort. No additional questions. -Patient has Atropine gtts as well. -Patient expected to within hours to a day or two. Not stable for transfer out of hospital. Not a GIP candidate as medication controlling end of life symptoms. -PPS 10% (2) CVA (cerebral vascular accident): (3) Liver dysfunction: (4) Dehydration: (5) GI bleed: History of Present Illness Reason for Consultation: goals of care Requesting Physician: Dr. Cancino Attending Physician: Mercy Ivan MD History of Present Illness This is an 88-year-old female that is a permanent resident at [facility] for the past 3 weeks. She started to become hypoxic and had an SpO2 in the 70's. They transported her to [facility] and placed her on BiPAP. The patient has an extensive PMH that includes atrial fibrillation with RVR, chronic anticoagulation, recent fall, tachybradycardia syndrome, status post placement of cardiac pacemaker, CVA, anxiety and depression, hypothyroidism, remote tobacco abuse history (quit smoking 50 years ago).The patients daughter and son in law were both at the bedside. She initially was able to answer simple yes/no questions and follow simple commands. Lengthy conversation was held with the patients daughter and the goal was to focus fully on comfort. She was placed on nasal canula and comfort medications were ordered. Palliative Care was consulted to discuss goals of care. Please see A/P for further details. Thank you kindly for involving the palliative care team with this unfortunate patient. Allergies Allergy/AdvReac Type Severity Reaction Status Date / Time adhesive Allergy Unknown RASH - Verified 08/28/19 14:17 ADHESIVE TAPE Home Medications Home Medications Medication Instructions Recorded Confirmed Type furosemide 20 mg PO QAM 08/25/19 08/28/19 History levothyroxine 75 mcg PO QAM 08/25/19 08/28/19 History metoprolol succinate 50 mg PO QAM 08/25/19 08/28/19 History potassium chloride 10 meq PO BID 08/25/19 08/28/19 History sertraline 50 mg PO QAM 08/25/19 08/28/19 History timolol maleate 1 drp OPB QAM 08/25/19 08/28/19 History warfarin 9 mg PO DAILY 08/25/19 08/28/19 History warfarin 12 mg PO UD 08/25/19 08/28/19 History Patient History Medical History (Updated 08/30/19 @ 08:36 by RANI Fonseca) Anxiety and depression (Chronic) Atrial fibrillation with tachycardic ventricular rate (Acute) CVA (cerebral vascular accident) GI bleed Hypothyroidism (Chronic) Palliative care encounter Tachy-jackie syndrome TIA (transient ischemic attack) (Resolved) Surgical History History of partial thyroidectomy (Resolved) Hx of cataract surgery (Resolved) "bilat" Family History Other Family history non-contributory Social History Preferred Language: Bengali Communication Ability: Unable Beliefs That Will Affect Care: None marital status: / Current Living Situation: Personal Care Facility Current Living Situation Comment: Moved to [facility] assisted living 3 weeks ago 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al status: retired 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: 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 Feels Safe at Home: Yes Smoking Status: Unknown if ever smoked Hx Alcohol Use: No Hx Substance Use: No Review of Systems Review of Systems: Unobtainable due to reduced consciousness Physical Exam Constitutional: + acute distress and + ill appearing Respiratory: + labored breathing, + uses accessory muscles and + abnormal respiratory pattern Cardiovascular: RRR, no murmur, no edema Gastrointestinal (Abdomen): normal bowel sounds, soft, nontender, no hepatosplenomegaly Skin: no rashes, warm and dry PG Care Time/CCT Total # of Minutes Spent Total Time Spent with Patient: Total time spent is greater than 50% in coordination of care (as documented) at patient's floor/unit and/or counseling patient: 70 Time Spent Midlevel Total time spent 70 minutes with > 50% of that time spent assessing the patient, discussing symptom management with IDT.
[2019-08-30] MEDS ORDERED: MoRPHine SULFATE 2 MG/ML CARP IV PRN (08:37)
[2019-08-30] MEDS ORDERED: LORazepam 2 MG/ML VIAL IV PRN (08:38)
[2019-08-30] MEDS: TIMOLOL MALEATE 0.25% OP SOLN 5 ML BTL OPB SCH (09:39)
--- NOTE | 2019-08-30 10:34 | Death Summary ---
Date of Service August 30, 2019 Pronouncement Note Contributing Factors (1) Palliative care encounter: (2) CVA (cerebral vascular accident): (3) Liver dysfunction: Contributing factors: possible cause : due to probable bowel ischemia / severe sepsis (4) Dehydration: (5) GI bleed: Contributing factors: possible bowel ischemia /cause of GI bleeding : leading to sepsis , metabolic acidosis , liver failure Additional Data Attending physician: Mercy Ivan MD pt been on comfort care seen at bedside approx at 9: 30 am , unresponsive , noted to be tachypnic , breathing with mouth open ordered to give IV morphine for comfort /SOB updated by nursing pt ceased breathing around / at 1015 am evaluated at bedside : unresponsive pupils bilateral non reactive /fixed no breathing or chest wall movement no heart sound -non in palpable or ausculated pronouncement : at 10:20 am attempt made to reach family members ; Daughter Cindy Davis and Son in Law : Maciej phone went to voice mail , message left pt was DNR/DNI while on comfort care
--- NOTE | 2019-08-30 11:40 | Discharge Summary ---
Date of Service August 30, 2019 Admission HPI Per Admitting Provider Attending: Dr. Dodge This is an 88-year-old female that currently resides at [facility] in assisted living for the last 3 weeks. She has a past medical history of atrial fibrillation with RVR, chronic anticoagulation, recent fall, tachybradycardia syndrome, status post placement of cardiac pacemaker, CVA, anxiety and depression, hypothyroidism, remote tobacco abuse history (quit smoking 50 years ago). The patient suffered a CVA several years ago secondary to atrial fibrillation with RVR. Since that time she has had increased dementia and recently was moved to assisted living at [facility]. She has been doing well until 4 days ago when she suffered a fall. She presented to the emergency department on 08/25/[address] head and cervical spine CT was negative. The patient has ecchymosis around the left eye with no tenderness to palpation. Today the family was notified that the patient had some blood with her stool and increased confusion. The patient was transported to the emergency department where a CT head was again negative and chest x-ray was negative for acute cardiopulmonary findings. CT abdomen and pelvis revealed artifact from movement and inability to extend arms overhead. Patient was found to have generalized anasarca on the study as well as a small left pleural effusion and a trace right pleural effusion. There was possible bowel wall thickening involving the rectum and right colon. There is minimal ascites. On arrival to the emergency department, patient was found to be hypoxic with an SaO2 in the 70s without good waveform. Patient was transiently placed on BiPAP. ABG was obtained which revealed pH of 7.36, PCO2 of 26.3, PaO2 of 371, HCO3 of 15, with an SaO2 of 100%. Patient was then placed on nasal cannula and nasal trumpet was kept in place. Oral examination of the posterior oropharynx revealed no evidence of stigmata of blood. Pulse oximetry 15 minutes after changing to nasal cannula revealed an SaO2 of 96% using the right third digit. Patient is seen at bedside with her daughter Cindy Davis and son-in-law Maciej. Patient is able to answer yes/no questions and follow simple commands. Patient shows no clinical evidence of acute stroke. She denies any pain to her head, thorax, or abdomen. Palpation around the left eye shows no guarding, flinching, or report of pain from the patient. She is unable to give me her history with where she lives. She is also unable to give me history regarding how she came to be at [facility]. Inasmuch as the patient was not able to provide review of systems, history was obtained by the daughter and son-in-law. Principal Diagnosis Bowel ischemia leading to severe sepsis/liver failure Patient while on comfort care Discharge Data Allergies Allergy/AdvReac Type Severity Reaction Status Date / Time adhesive Allergy Unknown RASH - Verified 08/28/19 14:17 ADHESIVE TAPE Consultations 08/28/19 16:19 ED Decision to Admit Stat 08/28/19 18:18 Consult Case Management - Discharge Planning Routine 08/29/19 13:34 Consult Case Management - Discharge Planning Routine Consult Palliative Care Routine Ordered Studies 08/28/19 14:16 CT abd pelvis wo con Stat CT head/brain wo con Stat Hospital Course (1) GI bleed: Pronouncement Note Contributing Factors (1) Palliative care encounter: (2) CVA (cerebral vascular accident): (3) Liver dysfunction: Contributing factors: possible cause : due to probable bowel ischemia /s evere sepsis (4) Dehydration: (5) GI bleed: Contributing factors: possible bowel ischemia /cause of GI bleeding : leading to sepsis , metabolic acidosis , liver failure Additional Data Attending physician: Mercy Ivan MD pt been on comfort care seen at bedside approx at 9: 30 am , unresponsive , noted to be tachypnic , breathing with mouth open ordered to give IV morphine for comfort /SOB updated by nursing pt ceased breathing around / at 1015 am evaluated at bedside : unresponsive pupils bilateral non reactive /fixed no breathing or chest wall movement no heart sound -non in palpable or ausculated pronouncement : at 10:20 am attempt made to reach family members ; Daughter Cindy Davis and Son in Law : Maciej phone went to voice mail , message left pt was DNR/DNI while on comfort care Total Time Total Time Spent Total Time Spent (In Minutes): Patient Discharge Plan Discharge Items Patient Disposition: Reason For Visit: GI BLEED Follow-up/Referrals: Red, [Primary Care Provider] - Admission Data Admit Date/Time: 08/28/19 17:25 Other DC Date/Time DO NOT enter until pt leaves facility: 08/30/19 12:42
== END 2019-08-30 12:42 | disposition expired | DRG 871 ==
LOC: ED 13:23 → SUATTDRO 17:25 → 2E 17:25 → 2W 08-29 12:21